=== PATIENT | male | born 2000 | race Caucasian/White ===

== ENCOUNTER 2021-05-16 15:34 | Emergency (ER) | payer OTHER ==
[~2021-05-16] VITALS: Ht 180.3 cm; Wt 65.8 kg
[2021-05-16] MEDS ORDERED: GENTAK5 ML OP (18:20)
== END 2021-05-16 18:50 | disposition home or self-care (01) ==
LOC: EMR PED 15:34 → ER 15:34 → EMR PED 17:12
DX: T15.91XA Foreign body on external eye, part unspecified, right eye, initial encounter (principal)